=== PATIENT | female | born 1995 | race Native Hawaiian/Other Pacific Islander ===

== ENCOUNTER 2017-06-27 13:57 | Emergency (ER) | payer BC ==
[~2017-06-27] VITALS: Ht 165.1 cm; Wt 54.4 kg
[~2017-06-27 13:57] MED LIST: ADDERALL15 MG PO
[2017-06-27 14:00] VITALS: TEMP 97.3
[2017-06-27 14:40] LABS: PLATELET COUNT 272 K/uL (152-353)
[2017-06-27 14:49] LABS: POTASSIUM 4.1 mmol/L (3.6-5.2)
[2017-06-27 16:48] VITALS: BP 120/58
== END 2017-06-27 16:49 | disposition home or self-care (01) ==
LOC: ED 13:57
DX: K52.9 Noninfective gastroenteritis and colitis, unspecified (principal); R11.2 Nausea with vomiting, unspecified; R19.7 Diarrhea, unspecified
CPT/HCPCS: 36415; 80053; 80307; 81000; 83690; 85027; 96365; 96374; 99284; J2405